=== PATIENT | female | born 1960 | race Caucasian/White ===

== ENCOUNTER 2017-06-27 10:18 | Day surgery (SDC) | payer BC ==
[~2017-06-27 10:18] MED LIST: Lactated Ringers 1,000 ML IV SCH; Lidocaine 2% 5 ML SDV ONE; Propofol 200 MG/20 ML SDV ONE; Sodium Chloride 0.9% 10 ML Syringe FLUSH PRN; Sodium Chloride 0.9% 2.5 ML Syringe FLUSH PRN; fentaNYL 100 MCG/2 ML SDV ONE
--- NOTE | 2017-06-27 11:23 | PCM.PREANE ---
Preanesthetic Assessment - Anesthesia/Transfusion/Family Hx Anesthesia History: Prior Anesthesia Without Reaction Family History of Anesthesia Reaction: No Transfusion History: No Prior Transfusion(s) - Review of Systems General: No Symptoms Pulmonary: No Symptoms Cardiovascular: No Symptoms Gastrointestinal: No Symptoms Neurological: No Symptoms Other: Reports: None - Physical Assessment NPO Status Date: 06/26/17 NPO Status Time: 22:00 O2 Sat by Pulse Oximetry: 98 Respiratory Rate: 16 Vital Signs: Last Vital Signs Temp 36.7 C 06/27/17 10:34 Pulse 73 06/27/17 10:34 Resp 16 06/27/17 10:34 BP 117/77 06/27/17 10:34 Pulse Ox 98 06/27/17 10:34 Height: 1.65 m Weight: 96.615 kg ASA Class: 2 Mental Status: Alert & Oriented x3 Airway Class: Mallampati = 2 Dentition: Reports: Normal Dentition ROM/Head Extension: Full Lungs: Clear to Auscultation, Normal Respiratory Effort Cardiovascular: Regular Rate, Regular Rhythm - Allergies Allergies/Adverse Reactions: Allergies Allergy/AdvReac Type Severity Reaction Status Date / Time cefazolin [From Anc] Allergy Hives Verified 06/21/17 10:23 fentanyl Allergy Redness Verified 06/21/17 10:23 - Blood Blood Available: Yes - Anesthesia Plan Pre-Op Medication Ordered: None - Acknowledgements Anesthesia Type Planned: MAC Pt an Appropriate Candidate for the Planned Anesthesia: Yes Alternatives and Risks of Anesthesia Discussed w Pt/Guardian: Yes Pt/Guardian Understands and Agrees with Anesthesia Plan: Yes PreAnesthesia Questionnaire Other HEENT History: wears glasses Endocrine/Metabolic History: Reports: Diabetes, Type II, Hypothyroidism, Obesity /BMI 30+ Oncologic (Cancer) History: Reports: Squamous Cell Carcinoma Other Oncologic History: on arms and legs, had bx and was treated with Effudex - Past Surgical History GI Surgical History: Reports: Appendectomy, Cholecystectomy Female Surgical History: Reports: Hysterectomy, Tubal Ligation Musculoskeletal Surgical History: Reports: Arthroscopic Knee, Other (See Below) Other Musculoskeletal Surgeries/Procedures:: hx of knee arthrotomy and scopes x3 - SUBSTANCE USE Smoking Status *Q: Former Smoker Tobacco Use Within Last Twelve Months: No Recreational Drug Use History: No - HOME MEDS Home Medications: Home Meds Acetaminophen [Tylenol Extra Strength] 1,500 mg PO ASDIRECTED PRN 06/21/17 [ History] Calcium Carbonate/Vitamin D3 [Calcium 600-Vit D3 500 Softgel] 2 tab PO DAILY 04/29 [History] Cinnamon Bark [Cinnamon] 500 mg PO DAILY 06/21/17 [History] Estradiol [Vivelle-Dot] 1 patch TOP ASDIRECTED 06/21/17 [History] Fish Oil/[place]-3 Fatty Acids [Fish Oil 1,000 MG] 1 gm PO DAILY 06/21/17 [History ] Folic Acid 0.8 mg PO DAILY 06/21/17 [History] Ibuprofen 600 mg PO ASDIRECTED PRN 06/21/17 [History] Levothyroxine 112 mg PO DAILY 06/21/17 [History] Multivitamin [Daily Multiple Vitamin] 1 tab PO DAILY 06/21/17 [History] Naproxen Sodium [Aleve] 440 mg PO ASDIRECTED PRN 06/21/17 [History] - CURRENT (IN HOUSE) MEDS Current Meds: Current Medications Lactated Ringer's (Ringers, Lactated) 1,000 mls @ 125 mls/hr IV ASDIRECTED JEAN-PIERRE Last Admin: 06/27/17 10:36 Dose: 125 mls/hr Sodium Chloride (Saline Flush) 10 ml FLUSH ASDIRECTED PRN PRN Reason: Keep Vein Open Sodium Chloride (Saline Flush) 2.5 ml FLUSH ASDIRECTED PRN PRN Reason: Keep Vein Open Discontinued Medications Fentanyl (Sublimaze) Confirm Administered Dose 100 mcg .ROUTE .STK-MED ONE Stop: 06/27/17 09:48 Lidocaine (Xylocaine-Mpf 2%) Confirm Administered Dose 5 ml .ROUTE .STK-MED ONE Stop: 06/27/17 09:48 Propofol (Diprivan 20 Ml) Confirm Administered Dose 400 mg .ROUTE .STK-MED ONE Stop: 06/27/17 09:48
[2017-06-27] MEDS ORDERED: Glycopyrrolate 0.2 MG/ML SDV ONE ×2 (12:51)
--- NOTE | 2017-06-27 13:20 | PCM.POSTAN ---
POST ANESTHESIA ASSESSMENT - MENTAL STATUS Mental Status: Alert, Oriented - RESPIRATORY Respiratory Status: Respiratory Rate WNL, Airway Patent, O2 Saturation Stable - CARDIOVASCULAR CV Status: Pulse Rate WNL, Blood Pressure Stable - GASTROINTESTINAL GI Status: No Symptoms - POST OP HYDRATION Hydration Status: Adequate & Stable
--- NOTE | 2017-06-27 13:20 | PCM48HPAN ---
Post Anesthesia Note - EVALUATION WITHIN 48HRS OF ANESTHETIC Vital Signs in Normal Range: Yes Patient Participated in Evaluation: Yes Respiratory Function Stable: Yes Airway Patent: Yes Cardiovascular Function Stable: Yes Hydration Status Stable: Yes Pain Control Satisfactory: Yes Nausea and Vomiting Control Satisfactory: Yes Mental Status Recovered: Yes
--- NOTE | 2017-06-27 13:55 | PCM.OPNOTE ---
- General Post-Op/Procedure Note Date of Surgery/Procedure: 06/27/17 Operative Procedure(s): Screening colonoscopy Findings: Normal colonoscopy. Poor bowel prep Pre Op Diagnosis: Screening colonoscopy Post-Op Diagnosis: Normal colon Anesthesia Technique: KWAN Primary Surgeon: Alexandria Flores Condition: Good Free Text/Narrative:: Intake & Output 06/26/17 06/27/17 06/27/17 22:59 06:59 14:59 Intake Total 750 Balance 750
--- NOTE | 2017-06-27 20:13 | OR ---
SURGEON: GUILLERMO MELÉNDEZ MD DATE OF PROCEDURE: 06/27/2017 PREOPERATIVE DIAGNOSIS: Screening colonoscopy. POSTOPERATIVE DIAGNOSIS: Screening colonoscopy. PROCEDURE PERFORMED: Screening colonoscopy. ANESTHESIA: MAC. INSTRUMENT USED: Olympus colonoscope. EXTENT OF EXAM: To the cecum. PREPARATION: Poor. LIMITATIONS: Stool covering the ascending colon, making identification of small polyps difficult. INDICATIONS: The patient is a 56-year-old female who presents for first time screening colonoscopy. We discussed the procedure as well as expected perioperative course. We discussed the risks including bleeding, infection, or damage to surrounding structures including perforation. The patient verbalized understanding and wishes to proceed. PROCEDURE IN DETAIL: The patient was brought into the endoscopy suite and placed in the left lateral decubitus position. A time-out was completed verifying the patient's name, age, date of , allergies, and procedure to be performed. Monitored anesthesia care was induced and continuous oxygen was provided via nasal cannula throughout the procedure. After adequate sedation was achieved, digital rectal exam was performed. This exam was within normal limits. A well-lubricated colonoscope was then inserted into the rectum and advanced under direct visualization to the level of the cecum. The cecum was identified by both visual and anatomic landmarks. The patient's prep was fair up until I reached the ascending colon. The ascending colon and cecum were covered in a thick layer of stool, but I was still able to visualize the cecal cap and intubate the cecum. I did not attempt to retroflex the scope within the cecum given the poor prep. The scope was then straightened out and then fully withdrawn while examining the color, texture, anatomy, and integrity of mucosa from the cecum to the anal canal. This appeared normal. My inspection of the ascending colon was limited by the thick stool covering the siddiqui. I attempted to wash this off but was unable to do so effectively. The scope was then brought into the rectum and retroflexed to allow visualization of the anal canal opening. This appeared normal. A photograph was taken. The scope was then straightened out and fully withdrawn. The cecum to anus time was 10 minutes. The patient was transferred to the PACU in stable condition. ENDOSCOPIC DIAGNOSIS: Normal colonoscopy with poor prep. RECOMMENDATIONS: We will have the patient follow up in 5 years for a repeat colonoscopy given the poor prep. We will have her stay on a clear liquid diet for two days as opposed to one to try to improve my visualization of the colon. LEMEASH / MODL /[id number] NEHAL
== END 2017-06-27 13:20 | disposition home or self-care (01) ==
LOC: MW.SDS 10:18
PROVIDERS: ATTEND Surgery
DX: Z12.11 Encounter for screening for malignant neoplasm of colon (principal); M17.11 Unilateral primary osteoarthritis, right knee; E03.9 Hypothyroidism, unspecified; E11.9 Type 2 diabetes mellitus without complications; E66.9 Obesity, unspecified; Z68.35 Body mass index [BMI] 35.0-35.9, adult; Z87.891 Personal history of nicotine dependence; Z80.0 Family history of malignant neoplasm of digestive organs; Z88.1 Allergy status to other antibiotic agents; Z88.5 Allergy status to narcotic agent; Z79.84 Long term (current) use of oral hypoglycemic drugs; Z79.899 Other long term (current) drug therapy; Z90.710 Acquired absence of both cervix and uterus; Z90.49 Acquired absence of other specified parts of digestive tract; Z98.51 Tubal ligation status; Z98.890 Other specified postprocedural states
CPT/HCPCS: 45378; J3010; J7120; 00810; J2704